=== PATIENT | female | born 1990 | race Caucasian/White ===

== ENCOUNTER 2022-03-27 18:47 | Emergency (ER) | payer BC ==
[2022-03-27 19:18] VITALS: BP 136/82; PULSE 73
[2022-03-27] MEDS: methylPREDNISolone Sodium Succinate 125 MG/2 ML SDV IVPUSH ONE (19:54)
[2022-03-27] MEDS: Sodium Chloride 0.9% 1,000 ML IV ONE (20:11)
[2022-03-27] MEDS: Iopamidol 755 Mg/ML 75 ML Bottle IVPUSH ONE (20:17)
[2022-03-27] MEDS: Sodium Chloride 0.9% 50 ML IV SCH (20:17)
[2022-03-27 20:39] LABS: RESPIRATORY SYNCYTIAL VIR NAA NEGATIVE (NEGATIVE)
[2022-03-27 20:43] LABS: CORONAVIRUS COVID-19 NAA NEGATIVE (NEGATIVE)
[2022-03-27] MEDS: Ibuprofen 600 MG Tab PO ONE (21:06)
[2022-03-27] MEDS: Acetaminophen/HYDROcodone 325-5 MG Tab PO ONE (22:17)
== END 2022-03-27 22:28 | disposition home or self-care (01) ==
LOC: KA.ED 18:47
DX: J02.0 Streptococcal pharyngitis (principal); Z20.822 Contact with and (suspected) exposure to COVID-19
CPT/HCPCS: 0241U; 36415; 70487; 70491; 80048; 85025; 96361; 96374; 99283; A9270; J2930; J7030; Q9967; 99284